=== PATIENT | male | born 1950 | race Caucasian/White ===

== ENCOUNTER → 2020-07-24 10:17 | Outpatient (BNVA) | payer MEDICARE, MEDICAID, SELFPAY | PROVIDERS: Visit Provider Nurse Practitioner Family | DX: G40.909 Epilepsy, unspecified, not intractable, without status epilepticus (principal); I10 Essential (primary) hypertension; Z79.899 Other long term (current) drug therapy | CPT/HCPCS: 80053; 80061; 80185 ==

== ENCOUNTER → 2020-08-01 10:34 | Outpatient (BNVA) | payer MEDICARE, MEDICAID, SELFPAY | PROVIDERS: Visit Provider Nurse Practitioner Family | DX: Z51.81 Encounter for therapeutic drug level monitoring (principal); Z79.899 Other long term (current) drug therapy | CPT/HCPCS: 80185 ==

== ENCOUNTER 2020-08-03 15:37 | Outpatient (CLI) | payer MEDICARE, MEDICAID, SELFPAY ==
--- NOTE | 2020-08-03 16:00 | MRR_ITS ---
PROCEDURE INFORMATION: Exam: MR Cervical Spine Without Contrast Exam date and time: 08/03/2020 5:27 PM Age: 70 years old Clinical indication: Cervicalgia; Patient HX: Chronic cervical pain, sharp pain when looking up and turning head from side to side; Additional info: M99.01 segmental and somatic dysfunction of cervical region TECHNIQUE: Imaging protocol: Multiplanar magnetic resonance images of the cervical spine without contrast. COMPARISON: No relevant prior studies available. FINDINGS: Vertebrae: There is straightening of cervical curvature. There is no fracture. Stir images demonstrate no evidence of marrow infiltrating lesion. There are type 1 degenerative changes of the endplates at C5-C6 and C6-C7. Spinal cord: The cervical spinal cord and cervicomedullary junction are normal. C2-C3: Mild spondylosis and disc bulge. There is facet arthropathy mild right and moderate to severe left foraminal stenosis. No central stenosis. C3-C4: Mild disc bulge. Mild right and moderate left foraminal stenosis. No central stenosis. C4-C5: Mild disc bulge. Facet hypertrophy mild right foraminal stenosis. No central stenosis. C5-C6: Spondylosis and disc space narrowing with a central to right paracentral osteophyte and disc protrusion. There is no central stenosis. There is mild right lateral recess stenosis. No foraminal stenosis. C6-C7: Spondylosis and disc space narrowing with posterior osteophyte and disc bulge. No central stenosis. Moderate foraminal stenosis. C7-T1: No significant disc disease. No significant spinal stenosis. Vertebral arteries: Expected flow voids in the vertebral arteries. Soft tissues: Paraspinous or fluid collection peer there is dehydration throughout. No disc edema. MR/MR cervical spin wo con* [id number] IMPRESSION: 1. No fracture or acute findings. 2. Multilevel degenerative findings with multilevel foraminal stenosis as detailed above. No central stenosis.
== END 2020-08-03 15:38 | disposition home or self-care (01) ==
LOC: RADSHAW 15:43
PROVIDERS: PCP Nurse Practitioner Family; Visit Provider Nurse Practitioner Family
DX: M99.01 Segmental and somatic dysfunction of cervical region (principal); M54.2 Cervicalgia
CPT/HCPCS: 72141

== ENCOUNTER 2021-01-02 19:02 | Observation (INO) | payer MEDICARE, MEDICAID, SELFPAY ==
--- NOTE | 2021-01-02 | CTR_ITS ---
PROCEDURE INFORMATION: Exam: CT Head Without Contrast Exam date and time: 01/02/2021 7:07 PM Age: 70 years old Clinical indication: Altered mental status/memory loss; Additional info: Stroke symptoms TECHNIQUE: Imaging protocol: Computed tomography of the head without contrast. Radiation optimization: All CT scans at this facility use at least one of these dose optimization techniques: automated exposure control; mA and/or kV adjustment per patient size (includes targeted exams where dose is matched to clinical indication); or iterative reconstruction. Other technique: STROKE PROTOCOL was implemented. COMPARISON: No relevant prior studies available. RADIATION DOSE METRICS: Total DLP (mGy-cm): 351.93 FINDINGS: Brain: There are chronic appearing lacunar infarcts in the bilateral basal ganglia and left subinsular region. There is no intracranial mass, hemorrhage or edema. Cerebral ventricles: Ventricles are within normal limits of size. Bones/joints: Unremarkable. No acute fracture. Paranasal sinuses: Visualized sinuses are unremarkable. No fluid levels. Mastoid air cells: Visualized mastoid air cells are well aerated. Soft tissues: Unremarkable. CT/CT head wo con* [id number] IMPRESSION: 1. Old lacunar disease. 2. No acute intracranial finding. ASSESSMENT: ASPECTS ([place] Stroke Program Early CT Score) is 10. Radiation Dose CTDIVOL = (mGy): DLP = 351.93 (mGy-cm)
[2021-01-02 19:03] VITALS: BP 131/82; PULSE 98; RESP 18; TEMP 36.6; O2SAT 96; BMI 19.3
--- NOTE | 2021-01-02 19:04 | XR_ITS ---
WS: [id number] PORTABLE CHEST HISTORY: cva COMPARISON: None available. Hyperexpanded lungs from emphysema. No pleural effusion or pneumothorax. Cardiac size: Normal. Mediastinum/Aorta: Normal mediastinum. No osseous abnormality seen. XR/XR chest 1V portable [id number] IMPRESSION: Chronic emphysema. No pneumonia.
--- NOTE | 2021-01-02 19:04 | ECG_ITS ---
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: : 1950 Requested By: Kisha Roman Order Number: [id number] Sergio MD: RORY KINCAID Measurements Intervals [place] Rate: 76 P: 80 NC: 167 QRS: 48 QRSD: 101 T: 57 QT: 412 QTc: 465 Interpretive Statements SINUS RHYTHM POSSIBLE LEFT ATRIAL ENLARGEMENT [-0.1mV P WAVE IN V1/V2] INDETERMINATE AXIS LOW QRS VOLTAGE IN PRECORDIAL LEADS [QRS DEFLECTION < 1.0 mV IN CHEST LEADS] INCOMPLETE RIGHT BUNDLE BRANCH BLOCK [90+ ms QRS DURATION, TERMINAL R IN V1/V2, 40+ ms S IN I/aVL/V4/V5/V6] POSSIBLE ANTERIOR MYOCARDIAL INFARCTION , PROBABLY OLD [30 ms Q WAVE IN V3/V4, OR R < 0.2 mV IN V4] No previous ECG available for comparison Electronically Signed On 01-03-2021 18:18:44 MACHINE LEAD BURNER by RORY KINCAID [id number]
[2021-01-02 19:11] VITALS: BP 138/80; PULSE 91; RESP 17; O2SAT 95
--- NOTE | 2021-01-02 19:15 | ED_ITS ---
HPI - Neuro Symptoms/Deficit General: Chief Complaint: Neuro Symptoms/Deficit Stated Complaint: poss stroke Time Seen by Provider: 01/02/21 19:03 Source: patient and EMS Mode of arrival: EMS Limitations: no limitations History of Present Illness: HPI Narrative: 70-year-old male states that he believes he may have had a stroke yesterday. He states that he has left-sided weakness and unable to move his arm or leg and fell. He complains of left hip and left shoulder pain from his fall. Denies hitting his head. He had a stroke roughly 1 to 2 years ago and has left-sided deficits from the stroke but not this severe. He has had some slight slurred speech. Associated symptoms: Deny chest pain, nausea or vomiting Review of Systems Const: Denies: fever(s), chills, body aches or change in appetite Eyes: Denies: blurry vision or eye discomfort ENMT: Denies: throat pain or dental pain Card: Denies: chest pain Resp: Denies: dyspnea GI: Denies: abdominal pain, nausea, vomiting or diarrhea : Denies: dysuria Musc: Reports: extremity pain Skin/Breast: Denies: rash Neuro: Reports: weakness in extremities Psych: Denies: depression Cra/Lymph: Denies: easy bruising All/Imm: Denies: urticaria PFSH ED PFSH: Medical History Chronic leg pain HTN (hypertension) Hx of hemorrhoids Hyperlipidemia Past heart attack Seizure disorder Seizure disorder Surgical History H/O left knee surgery History of ankle surgery History of hip surgery Family History Father CAD (coronary artery disease) Hypertension Social History Smoking and tobacco status: current every day smoker Physical Exam Const: COMMON NORMALS: no acute distress, patient oriented x3, healthy appearing and alert ORIENTATION/CONSCIOUSNESS: Yes oriented to person, Yes oriented to place and Yes oriented to time HENMT: COMMON NORMALS: normocephalic and atraumatic HEAD & SCALP: normocephalic and atraumatic Eye: COMMON NORMALS: Equal, round and reactive pupils present and EOMs intact bilaterally PUPIL: Yes Equal, round and reactive pupils present Neck/C-Spine: COMMON NORMALS: full ROM and supple Chest: COMMONS NORMALS: normal inspection of the chest and normal palpation of entire chest wall Resp: COMMON NORMALS: normal respiratory effort, No retractions, No use of accessory muscles and clear to auscultation bilaterally AUSCULTATION: clear to auscultation bilaterally Cardio: COMMON NORMALS: regular rate, regular rhythm and No murmurs present (Cardio) RATE: regular rate RHYTHM: regular rhythm GI: COMMON NORMALS: Normal to inspection, nondistended, normoactive bowel sounds present, Soft to palpation, non-tender and no masses PALPATION: Yes Soft to palpation Extremity: COMMON NORMALS: normal to inspection and full ROM Neuro: COMMON NORMALS: patient oriented x3 SENSORIUM/ORIENTATION: Yes alert, Yes oriented to person, Yes oriented to place and Yes oriented to time CRANIAL NERVES: Yes CN normal except as noted OTHER: Very minimal strength in left arm and leg Psych: COMMON NORMALS: mental status grossly normal, Normal thought process present and cooperative THOUGHT PROCESS: Normal thought process present Skin: COMMON NORMALS: no rashes or lesions noted and no wounds GENERAL SKIN EXAM: no rashes or lesions noted Course Vital Signs: Vital signs: Vital Signs Temperature 97.9 F 01/02/21 19:03 Pulse Rate 78 01/02/21 19:26 Respiratory Rate 18 01/02/21 19:26 Blood Pressure 138/80 01/02/21 19:26 Pulse Oximetry 96 01/02/21 19:26 MDM - Neuro Symptoms/Deficit MDM Narrative: Medical decision making narrative: Patient presents here with possible CVA. He does have left-sided weakness. He has been having this for over 24 hours and is not a TPA candidate. I spoke to hospitalist will admit. Lab Data: Labs: Lab Results 01/02/21 01/02/21 01/02/21 Range/Units 19:15 19:15 19:15 WBC 10.4 H (4.0-10.0) 10^3/ uL RBC 4.31 (4.1-5.3) 10^6/u L Hgb 13.5 (11.7-16.6) g/dL Hct 39.1 L (42.0-52.0) % MCV 90.7 (80-94) fL MCH 31.3 (28.0-34.0) pg MCHC 34.5 (30.0-36.0) g/dL RDW 13.7 (12.1-15.1) % Plt Count 183 (130-400) 10^3/c mm MPV 12.7 H (7.4-10.4) fL Neut % (Auto) 71.4 % Lymph % (Auto) 16.2 % [place] % (Auto) 9.1 % Eos % (Auto) 2.0 % Baso % (Auto) 1.0 % Neut # (Auto) 7.42 (1.8-7.7) 10^3/u L Lymph # (Auto) 1.7 (0.8-4.8) 10^3/u L [place] # (Auto) 0.9 (0.2-0.9) 10^3/u L Eos # (Auto) 0.2 (0.0-0.8) 10^3/u L Baso # (Auto) 0.1 (0.0-0.1) 10^3/u L Nucleated RBC % (a uto) 0 % Nucleated RBCs # 0.0 /100WBC PT 14.90 (12.1-14.9) SECO NDS INR 1.13 (0.8-1.2) Sodium 141 (136-145) mmol/L Potassium 3.9 (3.5-5.1) mmol/L Chloride 106 (98-107) mmol/L Carbon Dioxide 23 (22-29) mmol/L Anion Gap 15.9 (5-19) BUN 18 (8-23) mg/dL Creatinine 0.8 (0.7-1.2) mg/dL GFR Calculation 95.8 (90-130) mL/min Glucose 138 H (65-115) mg/dL Calculated Osmolal ity 296 H (285-295) mOsm/k g Calcium 9.1 (8.5-10.5) mg/dL Total Bilirubin 0.5 (0.15-1.2) mg/dL AST 24 (0-40) U/L ALT 22 (0-41) U/L Alkaline Phosphata se 138 H (40-130) IU/L Total Protein 6.8 (6.6-8.7) g/dL Albumin 3.8 (3.5-5.2) g/dL Globulin 3.0 (1.3-4.6) g/dL Imaging Data^: CT Head: Attestation: I personally reviewed and interpreted this imaging study as follows: Radiologist's impression: [employer] [place] [address] CT Scan Report Signed Patient: Pillo Israel Unit #: [id number] : 1950 Age/Sex: 70 / M ADM Date: 01/02/21 Loc: ER Room/Bed: Attending Dr: Ordering Provider/Ordering MD: Kisha Roman MD Date of Service: 01/02/21 Procedure(s): CT head wo con* [id number] Accession Number(s): [id number] Report Number: [id number] PROCEDURE INFORMATION: Exam: CT Head Without Contrast Exam date and time: 01/02/2021 7:07 PM Age: 70 years old Clinical indication: Altered mental status/memory loss; Additional info: Stroke symptoms TECHNIQUE: Imaging protocol: Computed tomography of the head without contrast. Radiation optimization: All CT scans at this facility use at least one of these dose optimization techniques: automated exposure control; mA and/or kV adjustment per patient size (includes targeted exams where dose is matched to clinical indication); or iterative reconstruction. Other technique: STROKE PROTOCOL was implemented. COMPARISON: No relevant prior studies available. RADIATION DOSE METRICS: Total DLP (mGy-cm): 351.93 FINDINGS: Brain: There are chronic appearing lacunar infarcts in the bilateral basal ganglia and left subinsular region. There is no intracranial mass, hemorrhage or edema. Cerebral ventricles: Ventricles are within normal limits of size. Bones/joints: Unremarkable. No acute fracture. Paranasal sinuses: Visualized sinuses are unremarkable. No fluid levels. Mastoid air cells: Visualized mastoid air cells are well aerated. Soft tissues: Unremarkable. CT/CT head wo con* [id number] IMPRESSION: 1. Old lacunar disease. 2. No acute intracranial finding. xr lhip: Attestation: I personally reviewed and interpreted this imaging study as follows: My impression: no acute fx CXR: My impression: no acute abnormality Discharge Plan Discharge Patient Disposition: Admitted As Inpatient Admit Provider: Ronen Unger Clinical Impression: Cerebrovascular accident Qualifiers: CVA mechanism: unspecified Qualified Code(s): I63.9 - Cerebral infarction, unspecified Condition: Stable Coding Level of Care Code ED [facility] D[facility] for [facility] Fwd Exam Comprehensive
[2021-01-02 19:26] VITALS: BP 138/80; PULSE 78; RESP 18; O2SAT 96
[2021-01-02 19:33] LABS: Basophils # 0.1 10^3/uL (0.0-0.1); Eosinophils # 0.2 10^3/uL (0.0-0.8); Hematocrit 39.1 % (42.0-52.0); Hemoglobin 13.5 g/dL (11.7-16.6); Lymphocytes # 1.7 10^3/uL (0.8-4.8); Lymphocytes % 16.2 %; Mean Corpuscular HGB Conc 34.5 g/dL (30.0-36.0); Mean Corpuscular Hemoglobin 31.3 pg (28.0-34.0); Mean Corpuscular Volume 90.7 fL (80-94); Mean Platelet Volume 12.7 fL (7.4-10.4); Monocytes # 0.9 10^3/uL (0.2-0.9); Monocytes % 9.1 %; Neutrophils # 7.42 10^3/uL (1.8-7.7); Neutrophils % 71.4 %; Nucleated Red Blood Cells % 0 %; Platelet Count 183 10^3/cmm (130-400); Red Blood Count 4.31 10^6/uL (4.1-5.3); Red Cell Distribution Width 13.7 % (12.1-15.1); White Blood Count 10.4 10^3/uL (4.0-10.0)
[2021-01-02 19:39] LABS: INR 1.13 (0.8-1.2)
--- NOTE | 2021-01-02 19:39 | XR_ITS ---
WS: [id number] LEFT HIP HISTORY: fall COMPARISON: None available. LEFT hip: No acute fracture or dislocation. There is slight narrowing at the LEFT hip joint. A few vascular calcifications in the femoral artery. XR/XR hip LT 2-3V wo/w pel* [id number] IMPRESSION: 1. No hip fracture. 2. Mild osteoarthritis LEFT hip joint.
[2021-01-02 19:45] LABS: Alanine Aminotransferase 22 U/L (0-41); Albumin Level 3.8 g/dL (3.5-5.2); Alkaline Phosphatase 138 IU/L (40-130); Anion Gap 15.9 (5-19); Aspartate Amino Transferase 24 U/L (0-40); Blood Urea Nitrogen 18 mg/dL (8-23); Calcium 9.1 mg/dL (8.5-10.5); Carbon Dioxide 23 mmol/L (22-29); Chloride 106 mmol/L (98-107); Glomerular Filtration Rate 95.8 mL/min (90-130); Glucose 138 mg/dL (65-115); Osmolality Calculated 296 mOsm/kg (285-295); Potassium 3.9 mmol/L (3.5-5.1); Sodium 141 mmol/L (136-145); Total Bilirubin 0.5 mg/dL (0.15-1.2); Total Protein 6.8 g/dL (6.6-8.7)
--- NOTE | 2021-01-02 19:46 | PC.NURSE ---
Pt states he fell at home yesterday after his symptoms started. Pt c/o of left shoulder and left hip pain. Significant weakness in left arm and leg - unable to perform adequate NIHSS.
--- NOTE | 2021-01-02 20:02 | PM.HP ---
Providers/Chief Complaint Primary Care Provider: QUIANA Ham Chief Complaint: poss stroke History of Present Illness Pillo Israel is a 70 year old male who has history of stroke in the past with left-sided residual weakness, presented today with worsening left-sided weakness. He was diagnosed with ischemic stroke in July of last year and since then he has been on high-dose aspirin and atorvastatin, he does carry history of seizures, no recent seizure-like activities endorsed by the patient. He is stating that yesterday around evening he started experiencing extreme weakness on the left side, he could not bear weight on his leg, he fell on the floor. He hit his left shoulder and hip but did not experience any injury to his head. He was conscious he did not notice any chest pain, shortness of breath, nausea, vomiting, seizure-like activities or syncopal events. He waited until today to come to the hospital because of worsening fatigue and weakness. His last proper meal was yesterday however he is denying aspiration/choking on food. Diagnostics in the ER revealed NIH 3, not a TPA candidate, CT head unremarkable consistent with old lacunar infarct, hip x-ray does not show any fractures, I would request left shoulder x-ray as well, At the time of my evaluation NIH 3, patient is complaining of left shoulder and hip pain. I would monitor his heart rhythm on telemetry to rule out atrial fibrillation Add Plavix requested physical therapy and Occupational Therapy, patient is feeling very fatigued and lethargic his who is 70 years old not able to care for him Review of Systems Const: Denies: fever(s) Eyes: Denies: change in vision ENMT: Denies: throat pain Card: Denies: chest pain Resp: Denies: dyspnea GI: Denies: abdominal pain : Denies: flank pain Musc: Reports: extremity pain, joint pain, joint swelling, joint warmth, joint stiffness, limited range of motion and decrease in muscle mass Skin/Breast: Denies: lesions Neuro: Reports: weakness in extremities and difficulty walking; Denies: lack of coordination, dizziness or Slurred speech present Psych: Denies: anxiety Endo: Denies: polyuria Car/Lymph: Denies: easy bruising All/Imm: Denies: urticaria Medications/Allergies Home Medications Medication Instructions Recorded Confirmed Last Taken Type aspirin 325 mg tablet 325 mg PO DAILY 07/09/20 10/31/20 Unknown History hydrocodone 5 mg-acetaminophen 325 1 tab PO Q6H PRN 07/09/20 10/31/20 Unknown History mg tablet ipratropium bromide 42 mcg (0.06 2 spray INTRANASAL TID 07/09/20 10/31/20 Unknown History %) nasal spray famotidine 20 mg tablet 20 mg PO BID 10/03/20 10/31/20 Unknown History tizanidine 2 mg capsule 2 mg PO BID PRN 10/03/20 10/31/20 Unknown History atorvastatin 80 mg tablet See Rx Instructions .ROUTE 11/21/20 Unknown Rx .COMPLEX #30 tab prazosin 1 mg capsule See Rx Instructions .ROUTE 12/03/20 Unknown Rx .COMPLEX #60 cap fluoxetine 20 mg capsule See Rx Instructions .ROUTE 12/19/20 Unknown Rx .COMPLEX #30 cap gabapentin 800 mg tablet 800 mg PO BID #60 tab 12/19/20 12/19/20 Unknown Rx phenytoin sodium extended 100 mg See Rx Instructions .ROUTE 12/19/20 Unknown Rx capsule .COMPLEX #90 cap Allergies Allergy/AdvReac Type Severity Reaction Status Date / Time No Known Allergies Allergy Verified 01/02/21 19:11 PFSH Acute PFSH: Medical History Cerebral aneurysm Cervical (neck) region somatic dysfunction Cervical stenosis of spinal canal Chronic leg pain HTN (hypertension) Hx of hemorrhoids Hyperlipidemia Past heart attack Right pontine CVA Seizure disorder Seizure disorder Surgical History H/O left knee surgery History of ankle surgery History of hip surgery Family History Father CAD (coronary artery disease) Hypertension Social History (Updated 01/02/21 @ 21:02 by Ronen Unger MD) Smoking and tobacco status: current every day smoker cigarettes [ Other cigarette details: half a pack a day ] Alcohol intake: never Substance/Drug Use: never Household members: spouse Housing: House Vitals/I&O/Wt Last Vital Signs Temp 97.9 F 01/02/21 19:03 Pulse 78 01/02/21 19:26 Resp 18 01/02/21 19:26 BP 138/80 01/02/21 19:26 Pulse Ox 96 01/02/21 19:26 Weight last 48 hrs Weight 62.823 kg Physical Exam Narrative: EXAM NARRATIVE: Elderly male who appears more than stated age Looks dehydrated and malnourished No active distress NIH 3 No cerebellar signs EOMI, PERRLA Dry mucous membranes S1, S2 no murmur appreciated Abdomen soft nontender bowel sound present Lower extremity no edema gangrene ulcer No petechia bruises or active bleeding noticed around left hip or shoulder area No vascular compromise of upper or lower extremities noted He is awake alert oriented x3 GCS 15 Data : 01/02/21 19:15 01/02/21 19:15 A&P Assessment and plan (1) Cerebrovascular accident: NIH 3 I would add Plavix to his high-dose regimen of aspirin and statin Requested physical therapy and Occupational Therapy I would obtain carotid Doppler No recent seizure-like activities Considering his time of presentation and low NIH and holding off on requesting CTA head and neck for now Monitor his heart rhythm on telemetry to rule out A. fib Would request records for his old stroke Status: Acute Qualifiers: CVA mechanism: unspecified Qualified Code(s): I63.9 - Cerebral infarction, unspecified Additional A&P Information History of seizure: No recent seizure-like activities, check phenytoin level Neuropathic pain: No acute exacerbation I would reduce gabapentin dose for now Recent fall: This seems secondary to worsening of left-sided weakness, he is also on prazosin, kindly reevaluate at the time of discharge if this could be changed with another medication to prevent orthostatic hypotension and recurrent falls Full code DVT prophylaxis Attestations Medical Necessity Statement*: Anticipating discharge in less than 48 hours currently need overnight management for recurrent ischemic stroke, need to rule out A. fib we will keep him on telemetry overnight, with weakness he wont be safe in this weather condition to go home without physical therapy evaluation Time Spent in Patient Care: (>than 50% of time spent in counselling and/or direct pt care on unit). 50mins Coding Level of Care Code Acute Burr Bench Hand for Nitin Fwhaim Diagnoses Cerebrovascular accident I63.9 CVA mechanism: unspecified
--- NOTE | 2021-01-02 21:03 | XR_ITS ---
WS: [id number] LEFT SHOULDER: 2 VIEW(S) TECHNIQUE: Internal and external rotation. HISTORY: shoulder pain COMPARISON: None available. No fracture or dislocation or soft tissue abnormality. Mild narrowing of the glenohumeral joint and AC joint. No fractures. XR/XR shoulder LT min 2V* [id number] IMPRESSION: Mild osteoarthritis LEFT AC joint and glenohumeral joint.
[2021-01-02 21:08] VITALS: PULSE 77; RESP 18; O2SAT 95
[2021-01-02 21:57] VITALS: BP 144/76; PULSE 78; RESP 18; TEMP 36.7; O2SAT 95
[2021-01-02 22:41] VITALS: RESP 16
[2021-01-02] MEDS: oxyCODONE 5 mg IR Tab/Cap PO (22:41)
[2021-01-02] MEDS: phenytoin ER 100 mg Capsule PO (22:42)
[2021-01-02] MEDS: enoxaparin 40 mg/0.4 mL Syringe SUBCUT (22:42)
[2021-01-02 23:11] LABS: Phenytoin Dilantin 9.9 ug/mL (10-20)
[2021-01-03] VITALS (13 sets, daily range): BP systolic 112–138; BP diastolic 51–76; PULSE 67–79; RESP 18–74; TEMP 36.3–36.8; O2SAT 94–97
[2021-01-03] MEDS: tizanidine 4 mg Tablet 2 MG PO ×2 (03:36→13:11)
[2021-01-03] MEDS: acetaminophen 325 mg Tablet PO ×2 (03:36→21:39)
[2021-01-03 06:42] LABS: Anion Gap 12.6 (5-19); Blood Urea Nitrogen 15 mg/dL (8-23); Calcium 8.2 mg/dL (8.5-10.5); Carbon Dioxide 24 mmol/L (22-29); Chloride 110 mmol/L (98-107); Glomerular Filtration Rate 111.8 mL/min (90-130); Glucose 89 mg/dL (65-115); Osmolality Calculated 296 mOsm/kg (285-295); Potassium 3.6 mmol/L (3.5-5.1); Sodium 143 mmol/L (136-145)
--- NOTE | 2021-01-03 07:00 | USCV_ITS ---
Pillo Israel Age: 70 Gender: M : 1950 Exam Date: 01/03/2021 07:25 Ordering Phys: Ronen Unger MD Technologist: Jane Hernandez [place] [facility] [place]: [place]A Risk Factors: Previous Vascular Surgery: Right Brachial BP: / Left Brachial BP: / Right Left Velocity (cm/s) Spectral Plaque Velocity (cm/s) Spectral Plaque Syst/Diast Broadening Syst/Diast Broadening 72.20/ 17.10 Prox CCA 71.10 / 18.30 74.60/ 22.50 Mid CCA 65.00 / 16.40 63.00/ 19.80 Distal CCA 74.00 / 20.50 57.20/ 15.40 Prox ICA 58.60 / 15.40 64.10/ 19.40 Mid ICA 68.90 / 26.00 63.00/ 20.30 Distal ICA 69.80 / 26.20 85.20 ECA 102.10 0.86 ICA/CCA 1.07 Antegrade Vertebral Antegrade 41.90/ 10.70 cm/s 31.50/ 10.90 cm/s Tri Subclavian Tri 67.70 94.60 FINDINGS Comparison: none available. No significant elevation of systolic or diastolic velocities. Waveforms are normal. Mixture of calcified and noncalcified plaque in the bifurcations. Antegrade vertebral arteries. CONCLUSIONS Bilateral ICA stenosis less than 50%. Mild atherosclerosis at the carotid bifurcations. Dr. Emilee Mathews DO (Electronically Signed) Final Date: 03 January 2021 08:55 S
[2021-01-03] MEDS: gabapentin 300 mg Capsule PO ×2 (09:17→17:26)
[2021-01-03] MEDS: atorvastatin 40 mg Tablet 80 MG PO (09:17)
[2021-01-03] MEDS: aspirin 325 mg Tablet PO (09:17)
[2021-01-03] MEDS: fluoxetine 20 mg Capsule PO (09:17)
[2021-01-03] MEDS: clopidogrel 75 mg Tablet PO (09:17)
[2021-01-03] MEDS: phenytoin ER 100 mg Capsule PO ×3 (10:29→21:38)
--- NOTE | 2021-01-03 11:55 | P.PN_ITS ---
Subjective Subjective: Interval history: The patient reports new worsening cough he is left upper and lower extremity weakness. Denies problems with speech or headache. No nausea or vomiting. No problems with vision. No chest pain or palpitations. No shortness of breath. No fever or chills. Medications: Reviewed: Yes Medication Review Details: Generic Name Dose Route Start Last Admin Trade Name Freq PRN Reason Stop Dose Admin Acetaminophen 325 - 650 mg 01/02/21 22:05 01/03/21 03:36 Acetaminophen 32 5 Mg Tablet PO 650 mg Q4H PRN Administration MILD PAIN OR INCR EASE TEMP Aspirin 325 mg 01/03/21 09:00 01/03/21 09:17 Aspirin 325 Mg T ablet PO 325 mg DAILY TOYA Administration Atorvastatin Calci um 80 mg 01/03/21 09:00 01/03/21 09:17 Atorvastatin 40 Mg Tablet PO 80 mg DAILY TOYA Administration Clopidogrel Bisulf ate 75 mg 01/03/21 09:00 01/03/21 09:17 Clopidogrel 75 M g Tablet PO 75 mg DAILY TOYA Administration Enoxaparin Sodium 40 mg 01/02/21 22:05 01/02/21 22:42 Enoxaparin 40 Mg /0.4 Ml Syringe SUBCUT 40 mg Q24H TOYA Administration Fluoxetine HCl 20 mg 01/03/21 09:00 01/03/21 09:17 Fluoxetine 20 Mg Capsule PO 20 mg DAILY TOYA Administration Gabapentin 300 mg 01/03/21 09:00 01/03/21 09:17 Gabapentin 300 M g Capsule PO 300 mg BID TOYA Administration Phenytoin 100 mg 01/02/21 22:05 01/03/21 10:29 Phenytoin Er 100 Mg Capsule PO 100 mg TID TOYA Administration Tizanidine HCl 2 mg 01/02/21 22:05 01/03/21 03:36 Tizanidine 4 Mg Tablet PO 2 mg BID PRN Administration spasm Vitals/I&O/Wt Last Vital Signs Temp 97.3 F L 01/03/21 11:00 Pulse 72 01/03/21 11:00 Resp 18 01/03/21 11:00 BP 123/72 01/03/21 11:00 Pulse Ox 96 01/03/21 11:00 01/02/21 01/03/21 01/03/21 22:59 06:59 14:59 Intake Total 100 / 100 100 / 100 Output Total 75 / 75 Balance 25 / 25 100 / 100 Weight last 48 hrs Weight 62.823 kg Physical Exam Narrative: EXAM NARRATIVE: Awake alert oriented. No acute distress. Mood and affect are appropriate. Responses are adequate. Skin is warm and dry. Moist mucous membranes. Eyes PERRL, extraocular muscles are intact Normal speech. No dysarthria or aphasia. Cranial nerves II through XII seem to be intact. There is 2 out of 5 weakness in the left upper extremity and 3 out of 5 weakness in the left lower extremity. Neck is supple. No JVD Lungs are clear. No respiratory distress Heart S1, S2, regular Abdomen soft, nontender, bowel sounds are present Extremities no edema cyanosis or calf tenderness bilaterally. Data : 01/02/21 19:15 01/03/21 05:58 Other Labs: Laboratory Results WBC 10.4 10^3/uL (4.0-10.0) H 01/02/21 19:15 RBC 4.31 10^6/uL (4.1-5.3) 01/02/21 19:15 Hgb 13.5 g/dL (11.7-16.6) 01/02/21 19:15 Hct 39.1 % (42.0-52.0) L 01/02/21 19:15 MCV 90.7 fL (80-94) 01/02/21 19:15 MCH 31.3 pg (28.0-34.0) 01/02/21 19:15 MCHC 34.5 g/dL (30.0-36.0) 01/02/21 19:15 RDW 13.7 % (12.1-15.1) 01/02/21 19:15 Plt Count 183 10^3/cmm (130-400) 01/02/21 19:15 MPV 12.7 fL (7.4-10.4) H 01/02/21 19:15 Neut % (Auto) 71.4 % 01/02/21 19:15 Lymph % (Auto) 16.2 % 01/02/21 19:15 [place] % (Auto) 9.1 % 01/02/21 19:15 Eos % (Auto) 2.0 % 01/02/21 19:15 Baso % (Auto) 1.0 % 01/02/21 19:15 Neut # (Auto) 7.42 10^3/uL (1.8-7.7) 01/02/21 19:15 Lymph # (Auto) 1.7 10^3/uL (0.8-4.8) 01/02/21 19:15 [place] # (Auto) 0.9 10^3/uL (0.2-0.9) 01/02/21 19:15 Eos # (Auto) 0.2 10^3/uL (0.0-0.8) 01/02/21 19:15 Baso # (Auto) 0.1 10^3/uL (0.0-0.1) 01/02/21 19:15 Nucleated RBC % (auto) 0 % 01/02/21 19:15 Nucleated RBCs # 0.0 /100WBC 01/02/21 19:15 PT 14.90 SECONDS (12.1-14.9) 01/02/21 19:15 INR 1.13 (0.8-1.2) 01/02/21 19:15 Sodium 143 mmol/L (136-145) 01/03/21 05:58 Potassium 3.6 mmol/L (3.5-5.1) 01/03/21 05:58 Chloride 110 mmol/L (98-107) H 01/03/21 05:58 Carbon Dioxide 24 mmol/L (22-29) 01/03/21 05:58 Anion Gap 12.6 (5-19) 01/03/21 05:58 BUN 15 mg/dL (8-23) 01/03/21 05:58 Creatinine 0.7 mg/dL (0.7-1.2) 01/03/21 05:58 GFR Calculation 111.8 mL/min (90-130) 01/03/21 05:58 Glucose 89 mg/dL (65-115) 01/03/21 05:58 Calculated Osmolality 296 mOsm/kg (285-295) H 01/03/21 05:58 Calcium 8.2 mg/dL (8.5-10.5) L 01/03/21 05:58 Total Bilirubin 0.5 mg/dL (0.15-1.2) 01/02/21 19:15 AST 24 U/L (0-40) 01/02/21 19:15 ALT 22 U/L (0-41) 01/02/21 19:15 Alkaline Phosphatase 138 IU/L (40-130) H 01/02/21 19:15 Total Protein 6.8 g/dL (6.6-8.7) 01/02/21 19:15 Albumin 3.8 g/dL (3.5-5.2) 01/02/21 19:15 Globulin 3.0 g/dL (1.3-4.6) 01/02/21 19:15 Phenytoin 9.9 ug/mL (10-20) L 01/02/21 22:[address] 01/02/21 00:00 IMPRESSION: 1. Old lacunar disease. 2. No acute intracranial finding. ASSESSMENT: ASPECTS ([place] Stroke Program Early CT Score) is 10. Radiation Dose CTDIVOL = (mGy): DLP = 351.93 (mGy-cm) Chest X-Ray 01/02/21 19:04 IMPRESSION: Chronic emphysema. No pneumonia. Hip/Pelvis X-Ray 01/02/21 19:39 IMPRESSION: 1. No hip fracture. 2. Mild osteoarthritis LEFT hip joint. Shoulder X-Ray 01/02/21 21:03 IMPRESSION: Mild osteoarthritis LEFT AC joint and glenohumeral joint. A&P Additional A&P Information Suspected CVA. Has increased weakness in the left upper and lower extremities. He has previous history of CVA with left-sided weakness. However his symptoms have worsened significantly. Ordering MRI. If MRI is positive we will consider additional testing. Continue dual antiplatelet therapy, statin. Possible need for outpatient Holter monitoring or event monitor if CVA is confirmed. Continue monitoring on telemetry. Currently in sinus. Will follow up fasting lipids. We will also order his orthostatic vital signs. We will adjust his home medica tions if confirmed. History of seizure disorder. Continue home medication. No evidence of seizure s. Will need outpatient follow-up with his neurologist. DVT prophylaxis. Lovenox. The plan of care was discussed with the patient. He verbalized understanding and agreement. Attestations Medical Necessity Statement*: Requires additional testing is described above. We will discharge him hopefully tomorrow. Coding Level of Care Code Acute Truck Driver Rubbish Collector for Nitin Jones
[2021-01-03] MEDS: enoxaparin 40 mg/0.4 mL Syringe SUBCUT (21:39)
[2021-01-03] MEDS: HYDROcodone-acetaminophen 5-325 mg Tablet 1 TAB PO (23:18)
[2021-01-04 05:41] VITALS: BP 131/68; PULSE 68; RESP 18; TEMP 36.5; O2SAT 95
[2021-01-04 06:17] LABS: Basophils % 0.6 %; Eosinophils # 0.2 10^3/uL (0.0-0.8); Eosinophils % 3.6 %; Hematocrit 39.2 % (42.0-52.0); Hemoglobin 13.5 g/dL (11.7-16.6); Lymphocytes # 1.7 10^3/uL (0.8-4.8); Lymphocytes % 24.6 %; Mean Corpuscular HGB Conc 34.4 g/dL (30.0-36.0); Mean Corpuscular Hemoglobin 31.4 pg (28.0-34.0); Mean Corpuscular Volume 91.2 fL (80-94); Mean Platelet Volume 12.6 fL (7.4-10.4); Monocytes # 0.8 10^3/uL (0.2-0.9); Monocytes % 11.6 %; Neutrophils # 3.99 10^3/uL (1.8-7.7); Neutrophils % 59.3 %; Nucleated Red Blood Cells % 0 %; Platelet Count 157 10^3/cmm (130-400); Red Cell Distribution Width 13.4 % (12.1-15.1); White Blood Count 6.7 10^3/uL (4.0-10.0)
[2021-01-04 06:39] LABS: Magnesium 1.9 mg/dL (1.7-2.3)
[2021-01-04 06:44] LABS: Albumin Level 3.3 g/dL (3.5-5.2); Anion Gap 13.8 (5-19); Blood Urea Nitrogen 12 mg/dL (8-23); Calcium 8.3 mg/dL (8.5-10.5); Carbon Dioxide 24 mmol/L (22-29); Chloride 108 mmol/L (98-107); Chol HDL Ratio 2.82 mg/dL (1.0-5.00); Cholesterol 79 mg/dL (0-200); Glomerular Filtration Rate 164.9 mL/min (90-130); Glucose 84 mg/dL (65-115); HDL Cholesterol 28 mg/dL (60-100); LDL Cholesterol Calculated 32 mg/dL (50-129); LDL HDL Ratio 1.14 RATIO (0.00-3.22); Phosphorus 3.2 mg/dL (2.5-4.5); Potassium 3.8 mmol/L (3.5-5.1); Sodium 142 mmol/L (136-145); Triglycerides 97 mg/dL (0-150)
--- NOTE | 2021-01-04 07:18 | PC.NURSE ---
asked pt. to sit up for breakfast if he pt wanted to pt. stated in to much pain.
[2021-01-04 07:19] VITALS: BP 150/82; PULSE 64; RESP 18; TEMP 36.9; O2SAT 97
[2021-01-04] MEDS: clopidogrel 75 mg Tablet PO (08:09)
[2021-01-04] MEDS: phenytoin ER 100 mg Capsule PO ×3 (08:09→22:09)
[2021-01-04] MEDS: gabapentin 300 mg Capsule PO ×2 (08:09→17:15)
[2021-01-04] MEDS: atorvastatin 40 mg Tablet 80 MG PO (08:09)
[2021-01-04] MEDS: fluoxetine 20 mg Capsule PO (08:09)
[2021-01-04] MEDS: aspirin 81 mg EC Tablet PO (08:09)
[2021-01-04 11:56] VITALS: BP 126/67; PULSE 80; RESP 17; TEMP 36.9; O2SAT 94
[2021-01-04 14:00] VITALS: PULSE 88
--- NOTE | 2021-01-04 14:30 | MR_ITS ---
WS: [id number] MRI HEAD WITH CONTRAST TECHNIQUE: Sagittal T1, T2 axial, T2 axial FLAIR, axial susceptibility weighted imaging, axial diffus ion weighted images, and coronal T2 images were obtained. Pre and post-T1 axial and post T1 coronal i mages. ADC and FSPGR images. CLINICAL INFORMATION: CVA COMPARISON: CT January 02, 2021 FINDINGS: No evidence of restricted diffusion to suggest acute ischemia. Ventricular system and basal cisterns are patent. Advanced small vessel changes. Moderate parenchymal volume loss. Multiple chronic lacunar infarcts involving the bilateral ahuja radiata and bilateral basal ganglia. Chronic lacunar infarct s in the jacky. Small vessel changes in the jacky. Tiny chronic lacunar infarcts left cerebellum. Nohemy l vascular flow voids at the skull base. No extra-axial fluid collections. Partial opacification of t he left maxillary sinus with mucosal thickening. Mild mucosal thickening in the mastoid air cells. Normal optic chiasm and pituitary infundibulum. Normal visualized dural venous sinuses. No abnormal i ntracranial enhancement. Tiny focus of enhancement involving the right medullary pyramid appears to r epresent a small incidental venous angioma or capillary telangiectasia. No other significant findings . MR/MR head wo/w con [id number] IMPRESSION: 1. No evidence of restricted diffusion to suggest acute ischemia. 2. Advanced small vessel changes with moderate parenchymal volume loss. 3. Multiple chronic lacunar infarcts involving the bilateral ahuja radiata, b ilateral basal ganglia, and jcaky. 4. Partial opacification left maxillary sinus with mucosal thickening. Mild mu cosal thickening in the mastoid air cells. 5. Temporal lobes and hippocampal formations are normal in appearance. 6. Tiny focus of enhancement in the right medullary pyramid likely represents incidental benign venous angioma or capillary telangiectasia. 7. Otherwise no abnormal foci of enhancement.
--- NOTE | 2021-01-04 15:52 | PM.PN ---
Subjective Subjective: Interval history: Ports unchanged weakness in the right upper and lower extremities. Reports left shoulder arthritis and asks for stronger medication. No chest pain or palpitations. No dizziness or lightheadedness. No problems with speech. Medications: Reviewed: Yes Medication Review Details: Generic Name Dose Route Start Last Admin Trade Name Freq PRN Reason Stop Dose Admin Acetaminophen 325 - 650 mg 01/02/21 22:05 01/03/21 21:39 Acetaminophen 32 5 Mg Tablet PO 650 mg Q4H PRN Administration MILD PAIN OR INCR EASE TEMP Aspirin 81 mg 01/04/21 09:00 01/04/21 08:09 Aspirin 81 Mg Ec Tablet PO 81 mg DAILY TOYA Administration Atorvastatin Calci um 80 mg 01/03/21 09:00 01/04/21 08:09 Atorvastatin 40 Mg Tablet PO 80 mg DAILY TOYA Administration Clopidogrel Bisulf ate 75 mg 01/03/21 09:00 01/04/21 08:09 Clopidogrel 75 M g Tablet PO 75 mg DAILY TOYA Administration Enoxaparin Sodium 40 mg 01/02/21 22:05 01/03/21 21:39 Enoxaparin 40 Mg /0.4 Ml Syringe SUBCUT 40 mg Q24H TOYA Administration Fluoxetine HCl 20 mg 01/03/21 09:00 01/04/21 08:09 Fluoxetine 20 Mg Capsule PO 20 mg DAILY TOYA Administration Gabapentin 300 mg 01/03/21 09:00 01/04/21 08:09 Gabapentin 300 M g Capsule PO 300 mg BID TOYA Administration Phenytoin 100 mg 01/02/21 22:05 01/04/21 08:09 Phenytoin Er 100 Mg Capsule PO 100 mg TID TOYA Administration Tizanidine HCl 2 mg 01/02/21 22:05 01/03/21 13:11 Tizanidine 4 Mg Tablet PO 2 mg BID PRN Administration spasm Vitals/I&O/Wt Last Vital Signs Temp 98.5 F 01/04/21 11:56 Pulse 80 01/04/21 11:56 Resp 17 01/04/21 11:56 BP 126/67 01/04/21 11:56 Pulse Ox 94 01/04/21 11:56 01/04/21 01/04/21 01/04/21 06:59 14:59 22:59 Intake Total 60 / 400 240 / 240 Output Total 150 / 300 Balance -90 / 100 240 / 240 Weight last 48 hrs Weight 62.823 kg Physical Exam Narrative: EXAM NARRATIVE: Awake alert oriented. No acute distress. Mood and affect are appropriate. Responses are adequate. Skin is warm and dry. Moist mucous membranes. Eyes PERRL, extraocular muscles are intact Normal speech. No dysarthria or aphasia. Cranial nerves II through XII seem to be intact. There is 2 out of 5 weakness in the left upper extremity and 3 out of 5 weakness in the left lower extremity. Neck is supple. No JVD Lungs are clear. No respiratory distress Heart S1, S2, regular Abdomen soft, nontender, bowel sounds are present Extremities no edema cyanosis or calf tenderness bilaterally. Data : 01/04/21 05:29 01/04/21 05:29 A&P Assessment and plan (1) Cerebrovascular accident: NIH 3 I would add Plavix to his high-dose regimen of aspirin and statin Requested physical therapy and Occupational Therapy I would obtain carotid Doppler No recent seizure-like activities Considering his time of presentation and low NIH and holding off on requesting CTA head and neck for now Monitor his heart rhythm on telemetry to rule out A. fib Would request records for his old stroke Status: Acute Qualifiers: CVA mechanism: unspecified Qualified Code(s): I63.9 - Cerebral infarction, unspecified Additional A&P Information Suspected CVA. Has increased weakness in the left upper and lower extremities. He has previous history of CVA with left-sided weakness. However his symptoms have worsened significantly. Pending MRI. If MRI is positive we will consider additional testing. Continue dual antiplatelet therapy, statin. Possible need for outpatient Holter monitoring or event monitor if CVA is confirmed. Continue monitoring on telemetry. Currently in sinus. Chronic arthritis. Will order as needed tramadol. History of seizure disorder. Continue home medication. No evidence of seizures. Will need outpatient follow-up with his neurologist. DVT prophylaxis. Lovenox. The plan of care was discussed with the patient. He verbalized understanding and agreement. Attestations Medical Necessity Statement*: Pending MRI. Assessing his discharge needs. Coding Level of Care Code Acute Senior Sourcing Manager for Nitin Jones Diagnoses Cerebrovascular accident I63.9 CVA mechanism: unspecified
[2021-01-04 16:00] VITALS: BP 167/90; PULSE 66; RESP 18; TEMP 36.8; O2SAT 96
[2021-01-04] MEDS: TRAMadol 50 mg Tablet PO ×2 (16:30→22:03)
[2021-01-04 20:00] VITALS: BP 129/68; PULSE 67; RESP 18; TEMP 36.7; O2SAT 97
[2021-01-04] MEDS: enoxaparin 40 mg/0.4 mL Syringe SUBCUT (22:02)
[2021-01-05] VITALS: BP 148/86; PULSE 69; RESP 18; TEMP 36.6; O2SAT 97
[2021-01-05 04:00] VITALS: BP 123/75; PULSE 64; RESP 17; TEMP 36.7; O2SAT 97
[2021-01-05 06:00] VITALS: PULSE 68
[2021-01-05] MEDS: aspirin 81 mg EC Tablet PO (07:46)
[2021-01-05] MEDS: atorvastatin 40 mg Tablet 80 MG PO (07:46)
[2021-01-05] MEDS: gabapentin 300 mg Capsule PO (07:46)
[2021-01-05] MEDS: clopidogrel 75 mg Tablet PO (07:47)
[2021-01-05] MEDS: TRAMadol 50 mg Tablet PO ×2 (07:47→13:45)
[2021-01-05] MEDS: fluoxetine 20 mg Capsule PO (07:47)
[2021-01-05] MEDS: phenytoin ER 100 mg Capsule PO ×2 (07:54→13:46)
[2021-01-05 07:55] VITALS: BP 129/72; PULSE 68; RESP 18; O2SAT 94
--- NOTE | 2021-01-05 11:18 | P.DS_ITS ---
Discharge Providers Date of Admission: 01/02/21 20:03 Date of Discharge: January 05, 2021 Attending Provider at Admission: Ronen Unger MD Attending Provider at Discharge: Irvin Kumar Primary Care Provider: QUIANA Ham Diagnoses at Discharge Discharge Diagnosis (1) Cerebrovascular accident: Status: Acute Qualifiers: CVA mechanism: unspecified Qualified Code(s): I63.9 - Cerebral infarction, unspecified Reason for Visit Reason for Visit: poss stroke Hospital Course Hospital Course Pillo Israel is a 70 year old male who has history of stroke in the past with left-sided residual weakness, presented with worsening left-sided weakness. He was diagnosed with ischemic stroke in July of last year and since then he has been on high-dose aspirin and atorvastatin, he does carry history of seizures, no recent seizure-like activities endorsed by the patient. MRI in the hospital revealed multiple chronic infarcts. No acute CVA. IMPRESSION: 1. No evidence of restricted diffusion to suggest acute ischemia. 2. Advanced small vessel changes with moderate parenchymal volume loss. 3. Multiple chronic lacunar infarcts involving the bilateral ahuja radiata, bilateral basal ganglia, and jacky. 4. Partial opacification left maxillary sinus with mucosal thickening. Mild mucosal thickening in the mastoid air cells. 5. Temporal lobes and hippocampal formations are normal in appearance. 6. Tiny focus of enhancement in the right medullary pyramid likely represents incidental benign venous angioma or capillary telangiectasia. 7. Otherwise no abnormal foci of enhancement. Bilateral Doppler ultrasound report: FINDINGS Comparison: none available. No significant elevation of systolic or diastolic velocities. Waveforms are normal. Mixture of calcified and noncalcified plaque in the bifurcations. Antegrade vertebral arteries. CONCLUSIONS Bilateral ICA stenosis less than 50%. Mild atherosclerosis at the carotid bifurcations. Suspected TIA versus transient worsening of his chronic left-sided weakness due to other problems such as medications. His weakness is back to baseline. Continue dual antiplatelet therapy, statin. Possible need for outpatient Holter monitoring or event monitor. Referral is provided to see Dr. Duque and Dr. Larson for further outpatient monitoring and work-up. Will also follow-up with his primary care provider. Discharge instructions are discussed and he verbalized understanding and agreement.. Chronic arthritis. He reports chronic arthritis and associated pain in the joints especially in the shoulders. I provided him with prescription for Tylenol 3. History of seizure disorder. Continue home medication. No evidence of seizures. Will need outpatient follow-up with his neurologist for long-term management. DVT prophylaxis. Received Lovenox. Currently the patient is doing well and is eager to go home. Denies any new complaints. Physical Exam Narrative: EXAM NARRATIVE: Awake alert oriented. No acute distress. Mood and affect are appropriate. Responses are adequate. Skin is warm and dry. Moist mucous membranes. Eyes PERRL, extraocular muscles are intact Normal speech. No dysarthria or aphasia. Cranial nerves II through XII seem to be intact. There is 3 out of 5 weakness in the left upper extremity and 4 out of 5 weakness in the left lower extremity. Neck is supple. No JVD Lungs are clear. No respiratory distress Heart S1, S2, regular Abdomen soft, nontender, bowel sounds are present Extremities no edema cyanosis or calf tenderness bilaterally. Discharge Data Data Completed and Pending: Completed Studies During Hospitalization Category Date Time Status CT head wo con* 7 0450 Urgent Cat Scan 01/02/21 Completed XR chest 1V chato ble [id number] Urgent Exams 01/02/21 19:04 Completed XR hip LT 2-3V wo /w pel* [id number] Stat Exams 01/02/21 19:39 Completed XR shoulder LT mi n 2V* [id number] Stat Exams 01/02/21 21:03 Completed MR head wo/w con [id number] Routine MRI 01/04/21 14:30 Completed CV carotid duplex BI* [id number] Routine Ultrasound 01/03/21 07:00 Completed Vitals: Last Vital Signs Temp 98.0 F 01/05/21 04:00 Pulse 68 01/05/21 07:55 Resp 18 01/05/21 07:55 BP 129/72 01/05/21 07:55 Pulse Ox 94 01/05/21 07:55 Discharge Plan Discharge Patient Disposition: Home Health Service Condition: Stable Prescriptions: New clopidogrel 75 mg Tablet 75 mg PO DAILY Qty: 30 RF: 0 aspirin 81 mg Tablet,Delayed Release (Dr/Ec) 81 mg PO DAILY Qty: 30 RF: 0 gabapentin 300 mg Capsule 300 mg PO BID Qty: 60 RF: 0 acetaminophen-codeine 300-30 mg tablet 1 tab PO Q6H PRN (Reason: pain) Qty: 30 RF: 0 Continued famotidine 20 mg tablet 20 mg PO BID@0600,1800 RF: 0 tizanidine 2 mg capsule 2 mg PO BID@,18 PRN (Reason: MUSCLE SPASMS) RF: 0 ipratropium bromide 42 mcg (0.06 %) spray,non-aerosol 2 spray INTRANASAL TID@,, RF: 0 atorvastatin 80 mg tablet 80 mg PO DAILY@0600 RF: 0 phenytoin 50 mg tablet,chewable 50 mg PO TID@,, RF: 0 fluoxetine 20 mg capsule 20 mg PO DAILY@0600 RF: 0 Discontinued hydrocodone-acetaminophen 5-325 mg tablet 1 tab PO Q6H PRN (Reason: Pain) RF: 0 aspirin 325 mg tablet 325 mg PO DAILY@00 RF: 0 prazosin 1 mg capsule 1 mg PO BID@ RF: 0 gabapentin 800 mg tablet 800 mg PO BID@ RF: 0 Discharge Orders: Discharge Order (Routine); Ordered 01/05/21 Ordered By: Irvin Kumar Referrals: Luz Maria Duque MD [Physician] - 1 week (management of CVA and seizure disorder [facility] will call you with an appointment on Thursday.) Pricilla Eden FNP [Primary Care Provider] - 1 week (Please consider additional testing in outpatient settings for stroke work-up. Patient needs Holter monitor or event monitor. [facility] will call you with an appointment on Thursday.) Ronen Larson MD [Physician] - (Evaluation for event monitor or Holter monitor placement for stroke work-up. [facility] will call you Thursday to set up an appointment.) Discharge Diet: Cardiac Discharge Activity: Increase activity as tolerated Patient Instructions: Acetaminophen/Codeine (By mouth), Aspirin (By mouth), Gabapentin (By mouth), Clopidogrel (By mouth), Ischemic Stroke (DC) Activity Restrictions/Additional Instructions: Please follow-up with your primary care physician. I also provided you with a referral to see a neurologist and heart doctor. You might need additional testing for recurrent strokes. You might need device which monitors you for episodes of irregular heartbeats. Your medications probably will need to be adjusted. Please speak with your primary care provider and neurologist. Referral is provided. Please come back to emergency room if develop any worsening or new muscle weakness, sensory loss, problems with speech, facial asymmetry, numbness, chest pain, palpitations, dizziness or lightheadedness, or any other new symptoms. Discharge Attestations Time Spent in Discharge Care*: greater than 30 min Quality Metrics Clinical Quality Measures During this hospital stay, did patient experience: None Coding Level of Care Code Acute Food Preparation Kitchen Aide for Charg Fwd Diagnoses Cerebrovascular accident I63.9 CVA mechanism: unspecified
--- NOTE | 2021-01-05 11:20 | DCPLANNER ---
Pg 2 of IM updated and reviewed with pt. No questions, copy provided.
[2021-01-05 11:50] VITALS: BP 119/66; PULSE 68; RESP 18; TEMP 36.7; O2SAT 96
--- NOTE | 2021-01-05 12:03 | PC.CHAP ---
Pastoral Care Encounter/Spiritual Assessment Type of Contact [] Declined firestopper installer visit [] Patient/Family/Request visit [] Outpatient visit [] Follow-up visit [] Physician referral [] Code/Alert [XX] Routine visit [] Staff referral [] Actively dying [] Patient sleeping [] Family support [] [] Out of room [] Palliative care [] [] Receiving care in room [] Pre-surgical visit [] Trauma [] Long length of stay [] ICU visit [] Other: Relational/Emotional Strength [XX] Patient feels connected with others/family/visitors/staff [] Distress [] Loneliness/isolation [] Abandonment Spirituality of Patient [] Person of Sana [] Attends Sabianism of their Sana [] Believes in Prayer [] Reads Bible or Baptist materials [] There are Spiritual issues to be addressed Help Desk Associate Interventions [] Prayer [XX] Active listening [XX] Non-anxious presence [] Spiritual/emotional support [] Crisis/trauma care [] Spiritual counseling [] Bereavement support [] Provided bereavement packet [] Provided Bible/devotional materials [] Provided toy/stuffed animal, coloring book to patient or family member [] Provided Communion [] Anointing/[place] [] Salvation [] Completed spiritual assessment [] Other: Impact on Illness or Injury [] Angry [] Fearful [] Anxious [] Often cries [] Exhaustion [] Unable to work [] Unable to attend restorationist [] Unable to walk/stand [] Unable to read [] Unable to drive [] Unable to eat/drink [] Unable to sleep [] Unable to be with family [] Patient intubated [] Other: Summary: Visit was brief as it was difficult to communicate with patient. Pt reported that he had a stroke previously, but this time a stroke was ruled out, for which he was relieved. Pt appreciated visit but declined prayer. Time spent with patient: 5 mins
[2021-01-05] MEDS: tizanidine 4 mg Tablet 2 MG PO (12:15)
[2021-01-05] MEDS: acetaminophen 325 mg Tablet PO (12:15)
[2021-01-05 13:56] VITALS: BP 119/66; PULSE 68; RESP 18; TEMP 36.7; O2SAT 96
== END 2021-01-05 13:57 | disposition home health service (06) ==
LOC: ER 20:04 → MEDSURG 20:22
PROVIDERS: Admitting Provider Internal Medicine; Emergency Provider Emergency Medicine; PCP Nurse Practitioner Family; Visit Provider Internal Medicine
DX: I63.9 Cerebral infarction, unspecified (principal); R29.703 NIHSS score 3; I69.354 Hemiplegia and hemiparesis following cerebral infarction affecting left non-dominant side; I65.23 Occlusion and stenosis of bilateral carotid arteries; I10 Essential (primary) hypertension; F17.210 Nicotine dependence, cigarettes, uncomplicated
CPT/HCPCS: 36415; 70450; 70553; 71045; 73020; 73030; 73502; 80048; 80053; 80061; 80069; 80185; 83735; 85025; 85610; 93005; 93880; 96372; 97116; 97161; 97165; 97530; 97535; 99285; A9577; G0378; J1650

== ENCOUNTER → 2021-01-30 11:19 | Outpatient (BNVA) | payer MEDICARE, MEDICAID, SELFPAY | PROVIDERS: PCP Nurse Practitioner Family; Visit Provider Nurse Practitioner Family | DX: Z51.81 Encounter for therapeutic drug level monitoring (principal); Z79.899 Other long term (current) drug therapy; G40.909 Epilepsy, unspecified, not intractable, without status epilepticus | CPT/HCPCS: 80185 ==

== ENCOUNTER → 2021-02-06 09:19 | Outpatient (BNVA) | payer MEDICARE, MEDICAID, SELFPAY | PROVIDERS: PCP Nurse Practitioner Family; Visit Provider Nurse Practitioner Family | DX: G40.909 Epilepsy, unspecified, not intractable, without status epilepticus (principal) | CPT/HCPCS: 80185 ==

== ENCOUNTER → 2021-02-13 09:05 | Outpatient (BNVA) | payer MEDICARE, MEDICAID, SELFPAY | PROVIDERS: PCP Nurse Practitioner Family; Visit Provider Nurse Practitioner Family | DX: G40.909 Epilepsy, unspecified, not intractable, without status epilepticus (principal) | CPT/HCPCS: 80185 ==

== ENCOUNTER 2021-02-15 17:53 | Emergency (ER) | payer MEDICARE, MEDICAID, SELFPAY ==
[2021-02-15 18:09] VITALS: BP 149/88; PULSE 71; RESP 16; TEMP 36.7; O2SAT 99; BMI 18.8
--- NOTE | 2021-02-15 18:09 | W.ED.FALL ---
HPI - Fall General: Chief Complaint: Fall Stated Complaint: fall, bilateral leg weakness Time Seen by Provider: 02/15/21 18:09 Source: patient Mode of arrival: ambulatory Limitations: no limitations History of Present Illness: MD complaint: fall Fall from: standing Fall witnessed: no Place fall occurred: home Loss of consciousness: None Prolonged down time: no Symptoms prior to fall: other (Weakness in left leg.) Context: other (History of CVA affecting left side.) Location of injury: other (Low back and left shoulder.) Severity: mild Quality: dull Associated symptoms-after fall: Reports difficulty walking Review of Systems General: Reports: 10 or more systems reviewed and unremarkable except in HPI and below Neuro: Reports: difficulty walking PFSH ED PFSH: Medical History Cerebral aneurysm Cerebrovascular accident Cervical (neck) region somatic dysfunction Cervical stenosis of spinal canal Chronic leg pain HTN (hypertension) Hx of hemorrhoids Hyperlipidemia Past heart attack Right pontine CVA Seizure disorder Seizure disorder Surgical History H/O left knee surgery History of ankle surgery History of hip surgery Family History Father CAD (coronary artery disease) Hypertension Social History (Updated 02/15/21 @ 18:15 by Vel Norman RN) Smoking and tobacco status: current every day smoker cigarettes [ Other cigarette details: half a pack a day ] and cigars Cigars smoked per week: 70 Alcohol intake: never Household members: spouse Housing: House Physical Exam Const: COMMON NORMALS: no acute distress and patient oriented x3 GENERAL APPEARANCE: cooperative HENMT: COMMON NORMALS: normocephalic and Normal external nose present HEAD & SCALP: normal to inspection and normocephalic NOSE: Normal external nose present MOUTH: Normal oral and palatal mucosa present and other (Edentulous) THROAT: posterior oropharynx normal Eye: GENERAL EYE: appearance normal, both eyes and all related structures Neck/C-Spine: COMMON NORMALS: full ROM Lymph: LYMPHATIC: no lymphadenopathy noted Chest: COMMONS NORMALS: normal inspection of the chest Resp: COMMON NORMALS: normal respiratory effort EFFORT & INSPECTION: Yes able to speak in complete sentences Cardio: COMMON NORMALS: regular rate and regular rhythm RATE: regular rate RHYTHM: regular rhythm GI: COMMON NORMALS: non-tender : COMMON NORMALS: Yes no CVA tenderness BLADDER/KIDNEY EXAM: Yes no CVA tenderness Back/Pelvis: COMMON NORMALS: no CVA tenderness and thoracic and lumbar spine normal to inspection Extremity: NARRATIVE EXTREMITY EXAM: Weakness to left side. Tenderness to the left anterior shoulder. Guarded movement due to pain. Palpable tenderness in the lower lumbar spine. Neuro: COMMON NORMALS: patient oriented x3 and moves all extremities Psych: COMMON NORMALS: mental status grossly normal and cooperative Skin: COMMON NORMALS: no rashes or lesions noted GENERAL SKIN EXAM: no rashes or lesions noted Course Vital Signs: Vital signs: Vital Signs Temperature 98.0 F 02/15/21 18:09 Pulse Rate 66 02/15/21 18:36 Respiratory Rate 18 02/15/21 18:36 Blood Pressure 139/73 02/15/21 18:36 Pulse Oximetry 98 02/15/21 18:36 MDM - Fall MDM Narrative: Medical decision making narrative: Patient was brought in to the emergency room for weakness in lower extremities and 2 falls today. Patient has a history of a CVA. Patient has chronic left-sided weakness. Patient reports no increased weakness in his extremities. Patient appears well. Patient appears in no acute distress. Patient does report some left shoulder pain. Exam notes weakness to the left arm and and left leg. Right side has no significant weakness. Patient reports this is not abnormal for him. Vital signs are normal. Respirations were even. Lungs were clear to auscultation. No facial drooping was noted. Abdomen was soft nontender. Laboratory values noted no specific abnormality. Urinalysis was clear. CT of the head was normal. X-ray of the shoulder and lumbar spine had no acute abnormality. Patient was treated with 1 hydrocodone for his shoulder discomfort. Recommended patient continue with Tylenol and ibuprofen at home. Strongly encouraged the use of his walker. Patient reported understanding and agreed to plan and felt comfortable going home. Differential Diagnosis: Fall Differential Diagnosis: Likely syncope, dislocation of shoulder region and compression fracture Lab Data: Labs: Lab Results 02/15/21 02/15/21 02/15/21 Range/Units 18:34 18:34 18:34 WBC 7.3 (4.0-10.0) 10^3/ uL RBC 4.19 (4.1-5.3) 10^6/u L Hgb 13.6 (11.7-16.6) g/dL Hct 39.1 L (42.0-52.0) % MCV 93.3 (80-94) fL MCH 32.5 (28.0-34.0) pg MCHC 34.8 (30.0-36.0) g/dL RDW 14.5 (12.1-15.1) % Plt Count 179 (130-400) 10^3/c mm MPV 12.1 H (7.4-10.4) fL Neut % (Auto) 56.7 % Lymph % (Auto) 29.6 % [place] % (Auto) 9.7 % Eos % (Auto) 2.6 % Baso % (Auto) 1.1 % Neut # (Auto) 4.13 (1.8-7.7) 10^3/u L Lymph # (Auto) 2.2 (0.8-4.8) 10^3/u L [place] # (Auto) 0.7 (0.2-0.9) 10^3/u L Eos # (Auto) 0.2 (0.0-0.8) 10^3/u L Baso # (Auto) 0.1 (0.0-0.1) 10^3/u L Nucleated RBC % (a uto) 0 % Nucleated RBCs # 0.0 /100WBC Sodium 141 (136-145) mmol/L Potassium 3.4 L (3.5-5.1) mmol/L Chloride 104 (98-107) mmol/L Carbon Dioxide 27 (22-29) mmol/L Anion Gap 13.4 (5-19) BUN 12 (8-23) mg/dL Creatinine 0.7 (0.7-1.2) mg/dL GFR Calculation 111.8 (90-130) mL/min Glucose 108 (65-115) mg/dL Calculated Osmolal ity 292 (285-295) mOsm/k g Calcium 8.9 (8.5-10.5) mg/dL Total Bilirubin 0.3 (0.15-1.2) mg/dL AST 21 (0-40) U/L ALT 31 (0-41) U/L Alkaline Phosphata se 109 (40-130) IU/L Troponin T Baselin e 17 H (0-15) ng/L Total Protein 6.7 (6.6-8.7) g/dL Albumin 3.9 (3.5-5.2) g/dL Globulin 2.8 (1.3-4.6) g/dL EKG Data^: EKG 1: Attestation: I personally reviewed and interpreted this EKG as follows: (EKG shows sinus rhythm, regular rate, 63 bpm, no ST elevation, no ectopy. No changes from prior exam done in December 2020.) Discharge Plan Discharge Patient Disposition: Home Clinical Impression: History of cerebrovascular accident Fall Qualifiers: Encounter type: initial encounter Qualified Code(s): W19.XXXA - Unspecified fall, initial encounter Left shoulder strain Qualifiers: Encounter type: initial encounter Qualified Code(s): S46.912A - Strain of unspecified muscle, fascia and tendon at shoulder and upper arm level, left arm, initial encounter Condition: Stable Prescriptions: No Action ipratropium bromide 42 mcg (0.06 %) spray,non-aerosol 2 spray INTRANASAL TID@06,12,18 RF: 0 atorvastatin 80 mg tablet 80 mg PO DAILY@2100 RF: 0 phenytoin sodium extended 100 mg capsule 100 mg PO TID@0500,1200,2100 RF: 0 clopidogrel 75 mg tablet 75 mg PO DAILY@0500 RF: 0 aspirin 81 mg tablet,delayed release (DR/EC) 81 mg PO DAILY@0500 RF: 0 gabapentin 300 mg capsule 300 mg PO BID@0500,2100 RF: 0 fluoxetine 20 mg capsule 20 mg PO DAILY@0500 RF: 0 Discharge Orders: Discharge ED (Routine); Ordered 02/15/21 Ordered By: Clayton Rodrigeuz Referrals: Pricilla Eden FNP [Primary Care Provider] - Discharge Diet: Usual diet Discharge Activity: Increase activity as tolerated Patient Instructions: Muscle Strain (ED), Opioid Safety Activity Restrictions/Additional Instructions: Activity as tolerated. Use a walker when ambulating. Use acetaminophen for pain control. Follow-up with primary care for further recommendations of treatment. Use ice or heat to the area for further comfort. Return to the emergency department for new concerns. Coding Level of Care Code ED Physical Chemistry Teacher for Nitin Fwd Exam Comprehensive
--- NOTE | 2021-02-15 18:13 | ECG_ITS ---
[facility] Test Date: 2021-02-15 Pat Name: Pillo Israel Department: Room: Gender: Male [employer]er: : 1950 Requested By: Clayton Hansen Order Number: [id number] Sergio MD: Ruben Billy M.D. Measurements Intervals [place] Rate: 63 P: 83 OH: 178 QRS: 78 QRSD: 104 T: 86 QT: 447 QTc: 459 Interpretive Statements SINUS RHYTHM INDETERMINATE AXIS LOW QRS VOLTAGE IN EXTREMITY LEADS [QRS DEFLECTION < 0.5 mV IN LIMB LEADS] INCOMPLETE RIGHT BUNDLE BRANCH BLOCK [90+ ms QRS DURATION, TERMINAL R IN V1/V2, 40+ ms S IN I/aVL/V4/V5/V6] POSSIBLE INFERIOR MYOCARDIAL INFARCTION , PROBABLY OLD [30 ms Q WAVE IN II/aVF] Compared to ECG 01/02/2021 19:18:52 No significant changes Electronically Signed On 02-15-2021 19:11:41 CDT by Ruben Billy M.D. [id number]
[2021-02-15 18:19] VITALS: O2SAT 99
--- NOTE | 2021-02-15 18:19 | XRR_ITS ---
PROCEDURE INFORMATION: Exam: XR Left Shoulder Exam date and time: 02/15/2021 6:47 PM Age: 70 years old Clinical indication: Injury or trauma; Fall; Blunt trauma (contusions or hematomas); Shoulder; Left; Injury date: 02/15/2021; Additional info: Injury, fall TECHNIQUE: Imaging protocol: XR Left shoulder. Views: 2 or more views. COMPARISON: CR XR shoulder LT min 2V* [id number] 01/02/2021 9:06 PM FINDINGS: Bones/joints: Negative for acute abnormality. Soft tissues: Normal. XR/XR shoulder LT min 2V* [id number] IMPRESSION: No acute findings.
--- NOTE | 2021-02-15 18:19 | XRR_ITS ---
PROCEDURE INFORMATION: Exam: XR Lumbosacral Spine Exam date and time: 02/15/2021 6:47 PM Age: 70 years old Clinical indication: Injury or trauma; Fall; Blunt trauma (contusions or hematomas); Injury date: 02/15/2021; Additional info: Lumbar pain TECHNIQUE: Imaging protocol: XR of the lumbosacral spine. Views: 2 or 3 views. COMPARISON: CR XR hip LT 2-3V wo/w pel* [id number] 01/02/2021 7:38 PM FINDINGS: Bones/joints: Normal. No acute fracture. Normal alignment. Soft tissues: Unremarkable. XR/XR lumbar spine 2-3V* [id number] IMPRESSION: No acute findings.
--- NOTE | 2021-02-15 18:19 | CTR_ITS ---
PROCEDURE INFORMATION: Exam: CT Head Without Contrast Exam date and time: 02/15/2021 7:23 PM Age: 70 years old Clinical indication: Weakness, extremity; Bilateral; Patient HX: C/O ble weakness TECHNIQUE: Imaging protocol: Computed tomography of the head without contrast. Total images: 205 Radiation optimization: All CT scans at this facility use at least one of these dose optimization techniques: automated exposure control; mA and/or kV adjustment per patient size (includes targeted exams where dose is matched to clinical indication); or iterative reconstruction. COMPARISON: CT head wo con* [id number] 01/02/2021 7:19 PM RADIATION DOSE METRICS: Total DLP (mGy-cm): 831.07 FINDINGS: Brain: No evidence of active or acute intracranial pathologic process, hemorrhage, or trauma. Stable old bilateral basal ganglia lacunar infarctions. Mild small vessel ischemic disease with senile periventricular leukomalacia. Cerebral and cerebellar atrophy with ventricular dilatation greater than that anticipated for patient's chronological age. Cerebral arteriosclerosis. No mass effect. No midline shift. No evidence for generalized cerebral edema. Cerebral ventricles: No ventriculomegaly. Bones/joints: Unremarkable. No acute fracture. Paranasal sinuses: Visualized sinuses are unremarkable. No fluid levels. Mastoid air cells: Visualized mastoid air cells are well aerated. Soft tissues: Unremarkable. CT/CT head wo con* [id number] IMPRESSION: No evidence of active or acute intracranial pathologic process, hemorrhage, or trauma. Radiation Dose CTDIVOL = (mGy): DLP = 831.07 (mGy-cm)
[2021-02-15 18:36] VITALS: BP 139/73; PULSE 66; RESP 18; O2SAT 98
[2021-02-15 18:40] LABS: Basophils # 0.1 10^3/uL (0.0-0.1); Basophils % 1.1 %; Eosinophils # 0.2 10^3/uL (0.0-0.8); Eosinophils % 2.6 %; Hematocrit 39.1 % (42.0-52.0); Hemoglobin 13.6 g/dL (11.7-16.6); Lymphocytes # 2.2 10^3/uL (0.8-4.8); Lymphocytes % 29.6 %; Mean Corpuscular HGB Conc 34.8 g/dL (30.0-36.0); Mean Corpuscular Hemoglobin 32.5 pg (28.0-34.0); Mean Corpuscular Volume 93.3 fL (80-94); Mean Platelet Volume 12.1 fL (7.4-10.4); Monocytes # 0.7 10^3/uL (0.2-0.9); Monocytes % 9.7 %; Neutrophils # 4.13 10^3/uL (1.8-7.7); Neutrophils % 56.7 %; Nucleated Red Blood Cells % 0 %; Platelet Count 179 10^3/cmm (130-400); Red Blood Count 4.19 10^6/uL (4.1-5.3); Red Cell Distribution Width 14.5 % (12.1-15.1); White Blood Count 7.3 10^3/uL (4.0-10.0)
[2021-02-15] MEDS: HYDROcodone-acetaminophen 5-325 mg Tablet 1 TAB PO (18:42)
[2021-02-15 18:55] LABS: Alanine Aminotransferase 31 U/L (0-41); Albumin Level 3.9 g/dL (3.5-5.2); Alkaline Phosphatase 109 IU/L (40-130); Anion Gap 13.4 (5-19); Aspartate Amino Transferase 21 U/L (0-40); Blood Urea Nitrogen 12 mg/dL (8-23); Calcium 8.9 mg/dL (8.5-10.5); Carbon Dioxide 27 mmol/L (22-29); Chloride 104 mmol/L (98-107); Globulin 2.8 g/dL (1.3-4.6); Glomerular Filtration Rate 111.8 mL/min (90-130); Glucose 108 mg/dL (65-115); Osmolality Calculated 292 mOsm/kg (285-295); Potassium 3.4 mmol/L (3.5-5.1); Sodium 141 mmol/L (136-145); Total Bilirubin 0.3 mg/dL (0.15-1.2); Total Protein 6.7 g/dL (6.6-8.7)
[2021-02-15 18:57] LABS: Troponin(5th) Baseline 17 ng/L (0-15)
[2021-02-15 20:34] LABS: Troponin 5 2HR 18.89 ng/L (0-15); Troponin 5 2HR Delta 1.89 ABS# (0-10)
[2021-02-15 20:43] LABS: Phenytoin Dilantin 15.5 ug/mL (10-20)
== END 2021-02-15 19:01 | disposition home or self-care (01) ==
PROVIDERS: Emergency Provider Nurse Practitioner Family; PCP Nurse Practitioner Family
DX: S46.912A Strain of unspecified muscle, fascia and tendon at shoulder and upper arm level, left arm, initial encounter (principal); Z86.73 Personal history of transient ischemic attack (TIA), and cerebral infarction without residual deficits; Z79.82 Long term (current) use of aspirin; Z79.02 Long term (current) use of antithrombotics/antiplatelets; I10 Essential (primary) hypertension; E78.5 Hyperlipidemia, unspecified; I25.2 Old myocardial infarction; F17.210 Nicotine dependence, cigarettes, uncomplicated; W19.XXXA Unspecified fall, initial encounter
CPT/HCPCS: 70450; 72100; 73030; 80053; 80185; 84484; 85025; 93005; 99284

== ENCOUNTER 2021-03-08 15:01 | Outpatient (CLI) | payer MEDICARE, MEDICAID, SELFPAY ==
[2021-03-08 15:44] LABS: Basophils # 0.1 10^3/uL (0.0-0.1); Basophils % 0.5 %; Eosinophils % 0.3 %; Hematocrit 41.6 % (42.0-52.0); Hemoglobin 14.1 g/dL (11.7-16.6); Lymphocytes # 1.6 10^3/uL (0.8-4.8); Lymphocytes % 12.5 %; Mean Corpuscular HGB Conc 33.9 g/dL (30.0-36.0); Mean Corpuscular Hemoglobin 31.5 pg (28.0-34.0); Mean Corpuscular Volume 92.9 fL (80-94); Mean Platelet Volume 10.8 fL (7.4-10.4); Monocytes # 0.8 10^3/uL (0.2-0.9); Monocytes % 6.4 %; Neutrophils # 10.29 10^3/uL (1.8-7.7); Neutrophils % 79.9 %; Nucleated Red Blood Cells % 0 %; Platelet Count 335 10^3/cmm (130-400); Red Blood Count 4.48 10^6/uL (4.1-5.3); Red Cell Distribution Width 13.1 % (12.1-15.1); White Blood Count 12.9 10^3/uL (4.0-10.0)
[2021-03-08 16:00] LABS: Anion Gap 13.6 (5-19); Blood Urea Nitrogen 7 mg/dL (8-23); Calcium 8.5 mg/dL (8.5-10.5); Carbon Dioxide 29 mmol/L (22-29); Chloride 102 mmol/L (98-107); Glomerular Filtration Rate 164.9 mL/min (90-130); Glucose 92 mg/dL (65-115); Osmolality Calculated 290 mOsm/kg (285-295); Potassium 3.6 mmol/L (3.5-5.1); Sodium 141 mmol/L (136-145)
[2021-03-08 16:20] LABS: Add Urine Microscopic? YES; Bacteria Urine 2+ /hpf; Bilirubin Urine Neg (Negative); Blood Urine 2+ (Negative); Glucose Urine UA Norm (Normal); Ketones Urine Negative (Negative); Leukocyte Esterase Urine Negative (Negative); Nitrate Urine Negative (Negative); Protein Urine Neg (Negative); RBC Urine 15-25 /hpf (0-2); Squamous Epithelial Cell Urine 0-4 /hpf (0-5); Urine Appearance SL Hazy (CLEAR); Urine Color Yellow (Yellow); Urobilinogen Urine 1 mg/dL (Negative); WBC Urine 0-4 /hpf (0-5); pH Urine 7 (5-7)
[2021-03-08 16:21] LABS: Amorphous Sediment Urine 2+ /hpf; Calcium Oxalate Crystals Urine 0-4 /hpf
[2021-03-08 16:22] LABS: Add Urine Culture? Yes
== END 2021-03-08 15:02 | disposition home or self-care (01) ==
PROVIDERS: PCP Nurse Practitioner Family; Visit Provider Internal Medicine
DX: N39.0 Urinary tract infection, site not specified (principal)
CPT/HCPCS: 80048; 81001; 85025; 87086